=== PATIENT | female | born 1965 | race Caucasian/White ===

== ENCOUNTER → 2016-10-20 | Outpatient (CLI) | payer MEDICAID | LOC: FIMAGING 13:02 | PROVIDERS: ATTEND Physician Assistant | DX: S63.391A Traumatic rupture of other ligament of right wrist, initial encounter (principal); M25.431 Effusion, right wrist ==

== ENCOUNTER 2017-03-25 19:48 | Emergency (ER) | payer MEDICAID ==
[2017-03-25 20:02] VITALS: TEMP 98.4
[2017-03-25] MEDS ORDERED: NS 1,000 ML IV ONE (20:06)
[2017-03-25] MEDS ORDERED: ONDANSETRON 4 MG/2 ML VIAL IVP ONE (20:06)
[2017-03-25] MEDS ORDERED: fentaNYL 100 MCG/2 ML INJ IVP ONE ×3 (20:06→20:55)
[2017-03-25] MEDS ORDERED: LORazepam 2 MG/ML INJ IVP ONE (20:13)
--- NOTE | 2017-03-25 20:13 | EDPHY ---
H & P Time Seen by Provider: 03/25/17 20:03 HPI/ROS: CHIEF COMPLAINT: right wrist pain status post foosh HISTORY OF PRESENT ILLNESS: 51-year-old [id number] female arrives via private vehicle complaining of acute right wrist pain after she was walking her cat, tripped and fell landing on her outstretched right hand complaining of acute right wrist pain. She has prior history of right wrist fracture with surgery x2 by Dr. Julius Burk most recently July 2016 PRIMARY CARE PROVIDER: REVIEW OF SYSTEMS: A ten point review of systems was performed and is negative with the exception of the items mentioned in the HPI PHYSICAL EXAM (Prior to examination, patient consented to physical exam, hands were washed and my usual and customary physical exam procedures followed) 1) GENERAL: Well-developed, well-nourished, alert and oriented. Appears anxious , crying, appears uncomfortable . 2) HEAD: Normocephalic 3) HEENT: Pupils equal, round, reactive to light bilaterally. 4) LUNGS: Breathing comfortably. 5) MUSCULOSKELETAL: Dorsal deformity of the distal radius noted, Soft compartments. Normal coloration. 6) SKIN: intact 7) VASCULAR: pulses and cap refill present are brisk 8) NEUROLOGIC: Radial, ulnar, median nerve function intact with no deficits appreciated on exam DIFFERENTIAL DIAGNOSIS: in no particular order including but not limited to fracture, sprain, compartment syndrome Smoking Status: Former smoker Constitutional: Initial Vital Signs Temperature (C) 36.9 C 03/25/17 19:57 Heart Rate 82 03/25/17 19:57 Respiratory Rate 18 03/25/17 19:57 Blood Pressure 141/93 H 03/25/17 19:57 O2 Sat (%) 93 03/25/17 19:57 O2 Delivery Mode Room Air Allergies/Adverse Reactions: tiagabine HCl [From Gabitril] Allergy (Verified 11/06/15 15:38) Home Medications: Medication Instructions Recorded [place] Thyroid 09/09/14 Hydrocodone/APAP 5/325 [[place] 1 tab PO Q6 PRN #15 tab 03/25/17 5/325 (RX)] Metoprolol Tartrate 07/21/17 Naratriptan HCl [Amerge] 03/25/17 Prednisone 03/25/17 MDM/Departure - MDM Imaging Results: Imaging Impressions Forearm X-Ray 03/25/17 20:05 Impression: 1. Comminuted displaced distal right radial fracture. Wrist X-Ray 03/25/17 20:05 Impression: Comminuted, displaced, angulated distal right radial fracture with intra-articular extension. Wrist X-Ray 03/25/17 20:55 Impression: Reduction and casting of comminuted distal right radial fracture. Images reviewed myself Imaging: I viewed and interpreted images myself Procedures: 8:50 p.m.: Procedure: Fracture reduction Indication: Fracture of the distal radius Indications, risks and benefits discussed with patient and consent obtained. A hematoma block of 0.5% bupivicaine placed by myself. Traction and countertraction applied achieving a visible and palpable reduction. The area was splinted with sugar-tong Orthoglass splint and sling. After application of the splint I returned and re-examined the patient. The splint was adequately immobilizing the joint and distal to the splint the patient's circulation and sensation were intact. Patient shows no signs of compartment syndrome. Was given orthopedic precautions. Medications Given: Discontinued Medications Hydrocodone Bitart/Acetaminophen ([place] 5/325mg Prepack#6) 1 btl TAKEHOME EDNOW ONE Stop: 03/25/17 21:36 Last Admin: 03/25/17 21:45 Dose: 1 btl Fentanyl (Sublimaze) 50 mcg IVP EDNOW ONE Stop: 03/25/17 20:07 Last Admin: 03/25/17 20:18 Dose: 50 mcg Fentanyl (Sublimaze) 100 mcg IVP EDNOW ONE Stop: 03/25/17 20:14 Last Admin: 03/25/17 20:24 Dose: Not Given Fentanyl (Sublimaze) 100 mcg IVP EDNOW ONE Stop: 03/25/17 20:56 Last Admin: 03/25/17 20:56 Dose: 100 mcg Sodium Chloride (Ns) 1,000 mls @ 0 mls/hr IV ONCE ONE PRN Reason: Wide Open Stop: 03/25/17 20:07 Last Admin: 03/25/17 20:17 Dose: 1,000 mls Ketorolac Tromethamine (Toradol) 30 mg IVP EDNOW ONE Stop: 03/25/17 21:11 Last Admin: 03/25/17 21:19 Dose: 30 mg Lorazepam (Ativan Injection) 1 mg IVP EDNOW ONE Stop: 03/25/17 20:14 Last Admin: 03/25/17 20:30 Dose: 1 mg Ondansetron HCl (Zofran) 4 mg IVP EDNOW ONE Stop: 03/25/17 20:07 Last Admin: 03/25/17 20:18 Dose: 4 mg Oxycodone/Acetaminophen (Percocet 5/325) 1 tab PO EDNOW ONE Stop: 03/25/17 21:40 Last Admin: 03/25/17 21:45 Dose: 1 tab ED Course/Re-evaluation: Patient was re-evaluated with serial examinations. Reviewed her x-rays. She has no evidence of compartment syndrome at initial or on serial examinations. Her fracture has been reduced however she will necessitate continued follow up with her orthopedic surgeon Dr. Julius Burk. Usual and customary orthopedic precautions instructions provided.Care and management in consultation with secondary supervising physician Dr Juarez . - Depart Disposition: Home, Routine, Self-Care Clinical Impression: Closed right radial fracture Qualifiers: Encounter type: initial encounter Radius location: distal Fracture morphology: Collenavi' Qualified Code(s): S52.531A - Colles' fracture of right radius, initial encounter for closed fracture Condition: Good Instructions: Hydrocodone/Acetaminophen (By mouth), Wrist Fracture in Adults ( ED) Additional Instructions: Return to the ER immediately if you experience discoloration, have worsening pain, numbness, tingling, or any other symptoms that concern you. If you received x-rays in the emergency department today, be advised, that ligamentous , tendon, muscular, and other non-bony injury cannot be fully ruled out. Try to keep your affected extremity elevated above the level of your chest, and keep cold packs on the affected area, for the next 48 hours. Prescriptions: Hydrocodone/APAP 5/325 [[place] 5/325 (RX)] 1 tab PO Q6 PRN #15 tab PRN Reason: Pain, Severe Referrals: Julius Burk MD [Medical Doctor] - 2-3 days, call for appt.
[2017-03-25] MEDS ORDERED: fentaNYL 100 MCG/2 ML INJ ONE (20:50)
[2017-03-25] MEDS ORDERED: KETOROLAC 30 MG/1 ML SDV IVP ONE (21:10)
[2017-03-25 21:23] VITALS: RESP 16
[2017-03-25] MEDS ORDERED: HYDROCOD/APAP 5/325 PREPACK#6 BTL TAKEHOME ONE (21:35)
[2017-03-25] MEDS ORDERED: OXYCODONE/APAP 5/325 TAB PO ONE (21:39)
[2017-03-25 21:58] VITALS: BP 124/84; PULSE 82; O2SAT 94
== END 2017-03-25 21:58 | disposition home or self-care (01) ==
PROC: 0PSHXZZ Reposition Right Radius, External Approach (ICD-10-PCS; principal; 2017-03-25)
DX: S52.531A Colles' fracture of right radius, initial encounter for closed fracture (principal); Z87.891 Personal history of nicotine dependence; W01.0XXA Fall on same level from slipping, tripping and stumbling without subsequent striking against object, initial encounter; Y99.8 Other external cause status; Y93.01 Activity, walking, marching and hiking
CPT/HCPCS: 96374; A4565; J1885; J2060; J2405; J3010

== ENCOUNTER 2017-04-06 07:33 | Observation (INO) | payer MEDICAID ==
[2017-04-06] MEDS ORDERED: LR 1,000 ML IV ONE (08:06)
[2017-04-06] MEDS ORDERED: LIDOCAINE 1% 2 ML INJ ID PRN (08:06)
[2017-04-06] MEDS ORDERED: BUPIVACAINE 0.5% 30 ML SDV ONE (08:15)
[2017-04-06] MEDS ORDERED: OXYCODONE/APAP 5/325 TAB PO ONE (09:15)
--- NOTE | 2017-04-06 09:38 | PDHPUP ---
History & Physical Update H&P update statement: This history and physical update is based on an assessment of the patient which was completed after admission or registration (within 24 hours), but prior to the surgery/procedure. H&P update: no change in patient's condition since H&P completed
[2017-04-06] MEDS ORDERED: ceFAZolin 2 GM/DEXTROSE 100 ML IV ONE (09:39)
[2017-04-06] MEDS ORDERED: MIDAZOLAM 2 MG/2 ML VIAL ONE ×2 (09:46→12:38)
[2017-04-06] MEDS ORDERED: MIDAZOLAM 2 MG/2 ML VIAL IVP ONE ×2 (09:47→12:45)
--- NOTE | 2017-04-06 09:48 | PDANEPAE ---
ANE Past Medical History - Cardiovascular History Hx Hypertension: No Hx Arrhythmias: No Hx Chest Pain: No Hx Coronary Artery / Peripheral Vascular Disease: No Hx CHF / Valvular Disease: No Hx Palpitations: No Cardiovascular History Comment: INCREASED HEART RAT RELATED TO CURRENT RX ON RX TO COUNTER - Pulmonary History Hx COPD: No Hx Asthma/Reactive Airway Disease: No Hx Recent Upper Respiratory Infection: No Hx Oxygen in Use at Home: No Hx Sleep Apnea: No Sleep Apnea Screening Result - Last Documented: Negative Pulmonary History Comment: SEP 2015 EAR INFECTION - Neurologic History Hx Cerebrovascular Accident: No Hx Seizures: Yes Hx Dementia: No Neurologic History Comment: SEIZURE RESULT OF GABITRIL MEDICATION. MIGRAINES - Endocrine History Hx Diabetes: No Hypothyroid: Yes Hyperthyroid: No Obesity: no Endocrine History Comment: TOTAL THYROIDECTOMY 2013. GRAVES DISEASE - Renal History Hx Renal Disorders: Yes Renal History Comment: INTERSTITIAL CYSTITIS NOT RECENTLY - Liver History Hx Hepatic Disorders: No - Neurological & Psychiatric Hx Hx Neurological and Psychiatric Disorders: No - Cancer History Hx Cancer: No - Congenital Disorder History Hx Congenital Disorders: No - GI History Hx Gastrointestinal Disorders: Yes Gastrointestinal History Comment: ULCER. IBS - Other Health History Other Health History: 08/03/15 SLIPPED AND FELL ON ICE AND CASTED. POLYMYALGIA RHEUMATICA DX 06/2015 - Chronic Pain History Chronic Pain: Yes (RT WRIST) - Surgical History Prior Surgeries: R WRIST 05/2016. SUBTOTAL THYROIDECTOMY 05/2014. LAPAROSCOPIC SURGERIES X 7. TOTAL HYSTERECTOMY. APPENDECTOMY. R PATELLAR REALIGN. CYST REMOVED L BREAST ANE Review of Systems - Exercise capacity METS (RN): 4 METS ANE Patient History - Allergies Allergies/Adverse Reactions: tiagabine HCl [From Gabitril] Allergy (Verified 04/06/17 08:46) Other-Enter Comments - Home Medications Home Medications: [place] Thyroid 09/09/14 [Last Taken 04/05/17 10:00] Metoprolol Tartrate 03/25/17 [Last Taken 03/23/17] Naratriptan HCl [Amerge] 03/25/17 [Last Taken 04/05/17 15:00] Prednisone 03/25/17 [Last Taken 04/05/17 10:00] Fosamax 5mg 04/05/17 [Last Taken 03/29/17] Percocet 5-325 mg Tablet 04/05/17 [Last Taken 04/05/17 00:00] - NPO status NPO Since - Liquids (Date): 04/05/17 NPO Since - Liquids (Time): 00:00 NPO Since - Solids (Date): 04/05/17 NPO Since - Solids (Time): 23:00 - Smoking Hx Smoking Status: Former smoker - Family Anes Hx Family Hx Anesthesia Complications: NEG ANE Labs/Vital Signs - Vital Signs Blood Pressure: 133/87 Heart Rate: 77 Respiratory Rate: 14 O2 Sat (%): 96 Height: 149.86 cm Weight: 55.338 kg ANE Physical Exam - Airway Neck exam: FROM Mallampati Score: Class 1 Mouth exam: normal dental/mouth exam - Pulmonary Pulmonary: no respiratory distress - Cardiovascular Cardiovascular: regular rate and rhythym - ASA Status ASA Status: II ANE Anesthesia Plan Anesthesia Plan: GA w LMA
[2017-04-06] MEDS ORDERED: PROPOFOL/EMULSION 500 MG/50 ML BOTTLE IV ONE (10:02)
[2017-04-06] MEDS ORDERED: ONDANSETRON 4 MG/2 ML VIAL ONE (10:03)
[2017-04-06] MEDS ORDERED: DEXAMETHASONE 4 MG/ML VIAL ONE (10:03)
[2017-04-06] MEDS ORDERED: fentaNYL 100 MCG/2 ML INJ ONE ×4 (10:03→11:46)
[2017-04-06] MEDS ORDERED: KETOROLAC 30 MG/1 ML SDV ONE (10:03)
[2017-04-06] MEDS ORDERED: LIDOCAINE 2% 5 ML SDV ONE (10:03)
[2017-04-06] MEDS ORDERED: HYDROmorphONE/DILAUDID 2 MG/ML INJ ONE (10:55)
[2017-04-06] MEDS ORDERED: NALOXONE HCL 0.4 MG/ML INJ IVP PRN (11:16)
[2017-04-06] MEDS ORDERED: LR 500 ML IV PRN (11:16)
[2017-04-06] MEDS ORDERED: PROMETHAZINE HCL 25 MG/ML INJ IVP PRN (11:16)
[2017-04-06] MEDS ORDERED: OXYCODONE/APAP 5/325 TAB PO PRN (11:16)
--- NOTE | 2017-04-06 11:26 | POSTOPPROG ---
Post Op Note Date of Operation: 04/06/17 Surgeon: Julius Burk Anesthesiologist: Dr Moody Anesthesia: LMA Pre-op Diagnosis: Right distal radius fracture Post-op Diagnosis: same Indication: displaced fracture Procedure: Open reduction and plate fixation of fracture Findings: Fracture with displacement Inf/Abcess present in the surg proc area at time of surgery?: No Depth: Deep Incisional (Fascial) EBL: Minimal Total fluids administered: 700cc Complications: None
[2017-04-06] MEDS ORDERED: HYDROmorphONE/DILAUDID 1 MG/ML SYR ONE ×4 (11:28→15:42)
[2017-04-06] MEDS: fentaNYL 100 MCG/2 ML INJ IVP PRN ×4 (11:29→11:52)
--- NOTE | 2017-04-06 11:29 | POSTANESTH ---
Post Anesthetic Evaluation Cardiovascular Status: Normal, Stable Respiratory Status: Normal, Stable Level of Consciousness/Mental Status: Can Participate in Eval Pain Control: Adequate, Prn Tx Ordered Nausea/Vomiting Control: Adequate, Prn Tx Ordered Complications Possibly Related to Anesthesia: None Noted
[2017-04-06] MEDS: HYDROmorphONE/DILAUDID 1 MG/ML SYR IVP PRN ×7 (11:31→16:08)
[2017-04-06] MEDS ORDERED: ROPIVACAINE HCL 150 MG/30 ML INJ ONE (12:22)
--- NOTE | 2017-04-06 12:42 | GOP ---
[f rep st] OPERATIVE REPORT DATE OF OPERATION: 04/06/2017 SURGEON: Julius Burk MD PREOPERATIVE DIAGNOSIS: Right comminuted displaced distal radial fracture. POSTOPERATIVE DIAGNOSIS: Right comminuted displaced distal radial fracture. PROCEDURE PERFORMED: Open reduction and plate and screw fixation of right distal radial fracture. FINDINGS: INDICATIONS: This patient had a distal radial fracture which had displaced very significantly dorsa lly and it was felt that realignment of the fracture was necessary at this point. DESCRIPTION OF PROCEDURE: Under general anesthesia, the patient's right arm was prepped and draped in the usual fashion and with the arm tourniquet at 250 mmHg, an L-shaped incision was made transver sely at the distal flexion crease of the wrist and then obliquely proximal onto the forearm. Skin a nd subcutaneous tissue were reflected and palmaris longus tendon was almost non-existent. It was so rudimentary. The FCR tendon was mobilized and reflected. The interval between the FCR and the fle xor pollicis longus and the finger flexors and median nerve was developed and a self-retaining retra ctor was placed. The pronator quadratus muscle was elevated from the distal radius. The fracture s ite was identified and cleansed of organized hematoma and then the fracture was reduced into anatomi c alignment. Using the Synthes distal radius, plate, and screw set, a 6-hole distal and 3-screw pro ximal plate was placed, locking the fracture in correct alignment. The reduction was anatomic and t he screw placement was determined to be good. There were no intra-articular screws and screw length was correct. The wound was irrigated profusely with body temperature saline and then the pronator quadratus and fascia were reapproximated with [id number] sutures of 4-0 PDS, and the skin close d with horizontal mattress sutures of 5-0 Prolene. A bulky soft pressure dressing was applied follo wed by powder-base fiberglass splint, held in place with an [place] bandage. She tolerated the procedur e well. Tourniquet deflation resulted in immediate pinking of the digits. [facility] where detailed postoperative instructions were given prior to discharge. A prescriptio n for Percocet and Keflex was provided. She had been given 2 g of Ancef prior to commencement of thomas rgery. Followup arrangements in the office for about a week postop for dressing, suture removal, an d cast application for 3 additional weeks. /[id number]/MODL
--- NOTE | 2017-04-06 13:08 | SOAPPROG ---
SOAP Progress Note Assessment/Plan: Assessment: Pt in PACU post wrist ORIF. C/O significant pain and requesting a block for pain control. This was discussed with surgeon who is in agreement and requesting a block. Plan: Consent signed and after time-out R supraclavicular block done with ultrasound. Ropivicaine 0.5 percent total 20 mls in divided doses with frequent negative aspirations. Procedure well tolerated and no complications noted. Pt reports pain relief, but continues to have some discomfort on upper wrist area. Arm weak and numb. Possible did not get great distal block. Discussed repeating vs continuing with IV and adding oral meds. Pt agrees relief is significant enough that wants to go with oral meds for now. 04/06/17 13:02 04/06/17 13:08 Objective: Vital Signs Temp Pulse Resp BP Pulse Ox 36.3 C 77 22 H 125/77 H 95 04/06/17 12:14 04/06/17 09:48 04/06/17 12:45 04/06/17 12:31 04/06/17 12:45 ICD10 Worksheet Patient Problems: Problems Problem Status Onset Abdominal pain, chronic, right upper quadrant Acute Nausea and vomiting in adult Acute
[2017-04-06] MEDS ORDERED: OXYCODONE/APAP 5/325 TAB ONE (13:18)
[2017-04-06] MEDS ORDERED: DIAZEPAM 10 MG/2 ML SYR IVP ONE (15:58)
[2017-04-06] MEDS ORDERED: METOPROLOL TARTRATE 5 MG/5 ML INJ IVP PRN (16:10)
--- NOTE | 2017-04-06 16:20 | SOAPPROG ---
SOAP Progress Note Assessment/Plan: Assessment: Pt in PACU post wrist ORIF. Did block earlier but pt continues to C/O significant pain. Arm is heavy and pt unable to lift. Pain dorsal wrist area. Plan: Repeat with supraclavicular block for more distal coverage. After time-out R supraclavicular block done with ultrasound. Ropivicaine 0.5 percent total 10 mls in divided doses with frequent negative aspirations. Procedure well tolerated and no complications noted. Repeat block done about 14:00. Following block Pt reports some pain relief, but continues to have some discomfort on upper wrist area. Thumb and index finger numb states has "numb pain" fingers. Recommend continue with oral meds and if ineffective consider admission. 04/06/17 16:14 04/06/17 16:20 Objective: Vital Signs Temp Pulse Resp BP Pulse Ox 37.2 C 77 14 108/65 95 04/06/17 14:41 04/06/17 09:48 04/06/17 14:15 04/06/17 14:15 04/06/17 14:15 ICD10 Worksheet Patient Problems: Problems Problem Status Onset Abdominal pain, chronic, right upper quadrant Acute Nausea and vomiting in adult Acute
[2017-04-06] MEDS ORDERED: ONDANSETRON DISINTEGRATING 4 MG TAB PO PRN (16:27)
[2017-04-06] MEDS ORDERED: HYDROmorphONE/DILAUDID 1 MG/ML SYR IVP PRN (16:27)
[2017-04-06] MEDS ORDERED: LORazepam 2 MG/ML INJ IVP PRN (16:27)
[2017-04-06] MEDS ORDERED: LORazepam 0.5 MG TAB PO PRN (16:27)
[2017-04-06] MEDS ORDERED: ONDANSETRON 4 MG/2 ML VIAL IVP PRN (16:27)
[2017-04-06] MEDS ORDERED: DIAZEPAM 10 MG/2 ML SYR ONE (16:30)
[2017-04-06] MEDS ORDERED: NS 1,000 ML IV SCH (16:30)
[2017-04-06] MEDS ORDERED: BISACODYL 10 MG SUPP PR PRN (16:57)
[2017-04-06] MEDS ORDERED: LACTULOSE 20 GM/30 ML UDCUP PO PRN (16:57)
[2017-04-06] MEDS ORDERED: POLYETHYLENE GLYCOL 3350 17 GM PKT PO PRN (16:57)
[2017-04-06] MEDS ORDERED: MAGNESIUM HYDROXIDE 30 ML UDCUP PO PRN (16:57)
[2017-04-06] MEDS ORDERED: NAPROXEN SODIUM 220 MG TAB PO PRN (16:59)
--- NOTE | 2017-04-06 17:03 | PDGENHP ---
History and Physical - Chief Complaint Acute hand pain - History of Present Illness primary care provider: [facility] Primary orthopedic surgeon: Dr. Burk History of present illness: 51-year-old female presenting with acute right hand pain characterized as sharp with associated paresthesias located in the distal fingers of the right hand. The patient underwent ORIF for a distal radial fracture on the day of this presentation and the onset of the symptoms are immediately postoperative. The patient had been experiencing pain located in her right upper extremity and right wrist after sustaining a mechanical fall approximately 2 weeks ago, resulting in a pena's fracture, managed with cast and alleviated with 10 mg of oral Percocet and Aleve as an outpatient. the pain was exacerbated by attempting to hold and care for dying PET recently. she underwent surgery today with Dr. Burk, did not experience any complications, and then began experiencing severe pain in recovery. The patient was seen by Dr. Martin and to infraclavicular nerve blocks were performed. The nerve block did not seem to control the pain but did produce significant paresthesias in the fingers. The patient does report that she has significant paresthesia all along her Proximal right upper extremity and right chest. History Information - Allergies/Home Medication List Allergies/Adverse Reactions: tiagabine HCl [From Gabitril] Allergy (Verified 04/06/17 08:46) Other-Enter Comments Home Medications: [place] Thyroid 09/09/14 [Last Taken 04/05/17 10:00] Metoprolol Tartrate 03/25/17 [Last Taken 03/23/17] Naratriptan HCl [Amerge] 03/25/17 [Last Taken 04/05/17 15:00] Prednisone 03/25/17 [Last Taken 04/05/17 10:00] Fosamax 5mg 04/05/17 [Last Taken 03/29/17] Percocet 5-325 mg Tablet 04/05/17 [Last Taken 04/05/17 00:00] I have personally reviewed and updated: family history, medical history, social history, surgical history - Past Medical History Additional medical history: irritable bowel syndrome. Interstitial cystitis. Chronic migraine. Graves disease. Polymyalgia rheumatica on chronic steroids. Recent colliers fracture - Surgical History Additional surgical history: hysterectomy. Appendectomy. Right patella surgery. left breast lumpectomy. Endometriosis surgery. Thyroidectomy - Family History Additional family history: mother with rectal cancer, father with diabetes mellitus, sister with [place]'s disease - Social History Smoking Status: Former smoker Alcohol Use: Occasionally Drug Use: None Additional social history: normally independent in her ADLs Review of Systems ROS: 10pt was reviewed & negative except for what was stated in HPI & below Muscolosketal: Reports: other ( Pain in the right hand) Neurological: Reports: paresthesia ( right hand) Physical Exam Temp Pulse Resp BP Pulse Ox 37.1 C 77 16 132/83 H 94 04/06/17 16:50 04/06/17 09:48 04/06/17 16:45 04/06/17 16:45 04/06/17 16:45 O2 (L/minute) 2 Constitutional: no apparent distress, appears nourished, not in pain Eyes: PERRL, anicteric sclera, EOMI Ears, Nose, Mouth, Throat: moist mucous membranes, hearing normal, ears appear normal, no oral mucosal ulcers Cardiovascular: regular rate and rhythym, no murmur, rub, or gallop, other ( good capillary refill in the right upper extremity fingers), No edema Respiratory: no respiratory distress, no rales or rhonchi, clear to auscultation Gastrointestinal: normoactive bowel sounds, soft, non-tender abdomen, no palpable masses Skin: other ( no duskiness or erythema over the distal fingers right hand) Musculoskeletal: other ( movement in right fingers, right upper extremity in sling) Neurologic: AAOx3, other ( paresthesias right fingers, right proximal upper extremity) Psychiatric: interacting appropriately, not anxious, not encephalopathic, thought process linear Assessment & Plan Assessment: 51-year-old female presenting with acute pain and paresthesias following ORIF for right Pena's fracture Plan: 1. Right upper extremity pain. Acute, new problem this provider, no further workup indicated. Most likely a combination of postoperative pain as well as hyper esthesia in the setting of nerve block and underlying pain syndrome with constellation of interstitial cystitis area bowel syndrome, migraine disorder, PMR. - although the patient is currently reporting extreme pain, she seems to be fairly comfortable after receiving a recent dose of IV Dilaudid, fentanyl - discussed with Dr. Burk, he has reported to me that the dressing has been split and he will reassess the patient from a surgical perspective tomorrow morning prior to discharge - attempt to manage pain with initial dose of IV Toradol now, p.r.n. Aleve, IV and oral Dilaudid, Ativan as needed given that there is most likely a hypersensitivity component - bowel regimen - Incentive spirometer 2. Polymyalgia rheumatica with chronic steroid dependency. Patient should be continued on her home dosage of methylprednisolone once reconciled to avoid hypotension Diet. Regular Prophylaxis. High risk patient given mobility, Lovenox 40 Code. Full Disposition. Anticipated discharge is 04/07/2017, requiring frequent IV pain medication dosing overnight, continue to reassess.
[2017-04-06] MEDS: KETOROLAC 15 MG/1 ML SDV IVP PRN (18:12)
[2017-04-06] MEDS: ACETAMINOPHEN 325 MG TAB PO PRN (18:13)
[2017-04-06] MEDS: HYDROmorphONE/DILAUDID 2 MG TAB PO PRN ×2 (18:13→22:01)
--- NOTE | 2017-04-06 18:48 | SOAPPROG ---
SOAP Progress Note Assessment/Plan: Assessment: Plan: 04/06/17 18:42 Hand Surgery note I evaluated Hilaria this evening and pain is under better control. Unfortunately her plexus block for post op pain control has given her complete block of shoulder and elbow but she has intact finger extension and flexion and finger and wrist area sensation. The wound was inspected and looks excellent. No hematoma and no skin compromise. Swelling is as expected post op. I think observation overnight for pain management is needed and plan discharge in the am if Dr. Lee agrees. Objective: Vital Signs Temp Pulse Resp BP Pulse Ox 37.2 C 87 14 111/75 90 L 04/06/17 17:18 04/06/17 17:18 04/06/17 17:18 04/06/17 17:18 04/06/17 17:18 04/05/17 04/06/17 04/07/17 05:59 05:59 05:59 Intake Total 1900 Output Total 5 Balance 1895 ICD10 Worksheet Patient Problems: Problems Problem Status Onset Abdominal pain, chronic, right upper quadrant Acute Nausea and vomiting in adult Acute
[2017-04-06] MEDS ORDERED: Naratriptan Hcl [Amerge] 2.5 MG PO PRN (18:52)
[2017-04-06] MEDS ORDERED: methylPREDNISolone 4 MG TAB PO SCH (21:00)
[2017-04-06] MEDS: SENNOSIDES/DOCUSATE SODIUM TAB PO SCH (21:11)
[2017-04-07] MEDS: KETOROLAC 15 MG/1 ML SDV IVP PRN ×2 (00:20→09:16)
[2017-04-07] MEDS: ACETAMINOPHEN 325 MG TAB PO PRN (04:50)
[2017-04-07] MEDS: HYDROmorphONE/DILAUDID 2 MG TAB PO PRN ×3 (04:50→12:20)
[2017-04-07 07:41] VITALS: BP 103/74; PULSE 67; RESP 16; TEMP 97.5; O2SAT 95
[2017-04-07] MEDS ORDERED: ENOXAPARIN 40 MG/0.4 ML SYR SC SCH (09:00)
[2017-04-07] MEDS ORDERED: Herbals/Supplements -Info Only PO SCH (09:00)
[2017-04-07] MEDS: SENNOSIDES/DOCUSATE SODIUM TAB PO SCH (09:19)
[2017-04-07] MEDS ORDERED: THYROID 60 MG TAB PO SCH (10:00)
[2017-04-07] MEDS ORDERED: NON-FORMULARY NEW DRUG (Thyroid,Pork [Armour Thyroid] 15 MG) PO SCH (10:00)
--- NOTE | 2017-04-07 10:30 | HOSPPROG ---
Hospitalist Progress Note Assessment/Plan: 51-year-old female presenting with acute pain and paresthesias following ORIF for right Young's fracture *right upper extremity pain post op pain was given nerve block but cont to have pain trial of Toradol, Dilaudid *distal radius fx s/p ORIF per Dr Burk * Polymyalgia rheumatica with chronic steroid dependency. *Plan: dc home with f/u care w Dr Burk Subjective: Hilaria said her pain is much better today. Objective: Vital Signs Temp Pulse Resp BP Pulse Ox 36.4 C 67 16 103/74 95 04/07/17 07:40 04/07/17 07:40 04/07/17 07:40 04/07/17 07:40 04/07/17 07:40 04/06/17 04/07/17 04/08/17 05:59 05:59 05:59 Intake Total 3000 Output Total 5 Balance 2995 - Physical Exam Constitutional: not in pain Eyes: PERRL Ears, Nose, Mouth, Throat: hearing normal Respiratory: no respiratory distress Skin: warm, other (right forearm in splint/ good cap refill/ fingers cool (but has had ice on hand, wrist area), ecchymosis and some swelling to fingers on right hand) Musculoskeletal: full muscle strength (x for right arm) Neurologic: AAOx3 Psychiatric: interacting appropriately ICD10 Worksheet Patient Problems: Problems Problem Status Onset Abdominal pain, chronic, right upper quadrant Acute Nausea and vomiting in adult Acute
--- NOTE | 2017-04-07 11:40 | GDS ---
[f rep st] DISCHARGE SUMMARY DISCHARGE DIAGNOSES: 1. Right upper extremity pain after having surgery. 2. Right radial fracture status post open reduction, internal fixation. 3. Polymyalgia rheumatica. BRIEF HISTORY: The patient is a 51-year-old female who was walking on her porch in the rain with flip-flops and slipped. She sustained a distal radial fracture. She underwent an ORIF of the distal radial fracture and started experiencing significant pain afterwards. She had an infraclavicular nerve block in the OR that was performed but did not seem to control her pain. She was admitted overnight to get her pain under control. Today, she is feeling markedly better. She will be discharged home. HOSPITAL COURSE PER PROBLEM: 1. Right upper extremity pain, resolved. 2. Distal radius fracture. She is status post ORIF. Further followup with Dr. Burk. 3. Polymyalgia rheumatica, steroids have been resumed. DISCHARGE CONDITION: Stable. VITAL SIGNS: Blood pressure is 103/74, O2 sat on room air 95%, respiratory rate is 16, pulse is 67, temperature is 36.4 Celsius. MEDICATIONS AT DISCHARGE: Please see the EMR. DISCHARGE INSTRUCTIONS: 1. Monitor her hand for any coolness or numbness. 2. If she develops fever, chills, chest pain, shortness of breath, return to the ER. /[id number]/MODL MTDD
== END 2017-04-07 12:31 | disposition home or self-care (01) ==
LOC: FSGY 07:33 → F3N 15:17 → UNDOADMOB 15:17 → F3N 17:10
PROVIDERS: ADMIT Specialist; ATTEND Internal Medicine
PROC: 3E0T3CZ (ICD-10-PCS; 2017-04-06)
PROC: 0PSH04Z Reposition Right Radius with Internal Fixation Device, Open Approach (ICD-10-PCS; principal; 2017-04-06 09:00)
DX: S52.531A Colles' fracture of right radius, initial encounter for closed fracture (principal); G89.18 Other acute postprocedural pain; M35.3 Polymyalgia rheumatica; E05.00 Thyrotoxicosis with diffuse goiter without thyrotoxic crisis or storm; W01.0XXA Fall on same level from slipping, tripping and stumbling without subsequent striking against object, initial encounter; Y99.8 Other external cause status; Y93.01 Activity, walking, marching and hiking; Y92.018 Other place in single-family (private) house as the place of occurrence of the external cause; Z79.52 Long term (current) use of systemic steroids; Z87.891 Personal history of nicotine dependence
CPT/HCPCS: 25607; 64415; 97165; C1769; G0378; C1713; J0690; J1100; J1170; J1650; J1885; J2250; J2405; J2704; J2795; J3010

== ENCOUNTER 2018-04-26 22:50 | Emergency (ER) | payer MEDICAID ==
[2018-04-26] MEDS ORDERED: AMOXICILLIN/CLAVULANATE POT 875/125 MG TAB PO ONE (23:16)
--- NOTE | 2018-04-26 23:16 | EDPHY ---
H & P Stated Complaint: cat bites Time Seen by Provider: 04/26/18 23:13 HPI/ROS: HPI: This is a 52-year-old female who presents with Chief Complaint: Cat bite Location: Left wrist and top of hand Quality: Cat bite Duration: 30 min prior to arrival Signs and Symptoms: + bleeding, no radiation, no numbness, no weakness, no tingling, no incontinence, no decreased range of motion, no swelling, + pain, no fever Timing: Acute Severity: Moderate Context: Patient is right-hand dominant, presents with cat bite to her left palmar aspect of her wrist and top of left hand. She reports that she had just finished taking a coconut back when she heard her male cat mowing and crying outside. She went outside and found that her male CT who is up-to-date on vaccinations including rabies, was in a fight with another cat. She reports that she put her hand on the back of her male cat and she tried to break up the fight. Her male cat turned around and bit her left wrist as well as the top of her left hand. She reports that it started to bleed on her left wrist palmar side. Immediately took her bathrobe and wrapped around her wrist and used as a tourniquet. This stopped the bleeding. Reports tetanus is current. Patient denies any radiation, weakness, decreased range of motion. Modifying Factors: Direct pressure Comment: ROS: see HPI Constitutional: No fever, no chills, no weight loss Eyes: No blurred vision Respiratory: No shortness of breath, no cough Cardiovascular: No chest pain Gastrointestinal: No nausea, no vomiting no diarrhea Genitourinary: No dysuria Extremities: No myalgias Neurologic: No weakness, no numbness Skin: No rashes Hematologic: No bruising, no bleeding MEDICAL/SURGICAL/SOCIAL HISTORY: Medical history: thyroidectomy/graves disease. Fibromyalgia, Surgical history: hysterectomy , r wrist surgery with complication, r knee surgery, appendectomy Social history: Employed, smoker. CONSTITUTIONAL: Elderly white female who appears older than stated age, awake and alert, no obvious distress HEENT: Atraumatic and normocephalic. EXTREMITIES: 2/2 pulses, strength 5/5, left wrist-palmar aspect shows 3 in, deep, simple laceration, topical left hand shows 1 in, superficial, simple laceration. DIP/PIP/MCP flexion/extension intact with good light touch sensation. no deformities, no clubbing, no cyanosis or edema. NEUROLOGICAL: no focal neuro deficits. GCS 15. Light touch sensation intact. SKIN: Warm and dry, no erythema. no rash. Good capillary refill. Source: Patient Exam Limitations: No limitations - Personal History LMP (Females 10-55): Hysterectomy Current Tetanus Diphtheria and Acellular Pertussis (TDAP): Yes Tetanus Vaccine Date: 2012 - Medical/Surgical History Hx Asthma: No Hx Chronic Respiratory Disease: No Hx Diabetes: No Hx Cardiac Disease: No Hx Renal Disease: No Hx Cirrhosis: No Hx Alcoholism: No Hx HIV/AIDS: No Hx Splenectomy or Spleen Trauma: No Other PMH: thyroidectomy/graves disease. Fibermyalgia. hysterectomy. r wrist surgery with complication. r knee surgery. appy - Social History Smoking Status: Light smoker Constitutional: Initial Vital Signs Temperature (C) 36.6 C 04/26/18 22:59 Heart Rate 100 04/26/18 22:59 Respiratory Rate 16 04/26/18 22:59 Blood Pressure 152/112 H 04/26/18 22:59 O2 Sat (%) 97 04/26/18 22:59 O2 Delivery Mode Room Air Allergies/Adverse Reactions: tiagabine HCl [From Gabitril] Allergy (Verified 04/26/18 22:57) Other-Enter Comments Home Medications: Medication Instructions Recorded Metoprolol Tartrate [Lopressor 25 25 - 50 mg PO DAILY PRN #0 03/25/17 mg (*)] Naratriptan HCl [Amerge] 2.5 mg PO DAILY PRN 03/25/17 methylPREDNISolone [Medrol 4mg (*)] 2 - 4 mg PO HS #0 03/25/17 Herbals/Supplements -Info Only 1 ea PO DAILY 04/06/17 Thyroid,Pork [[place] Thyroid] 15 mg PO DAILY10 04/06/17 Amoxicillin/Clavulanate Pot 875 mg PO BID #14 tab 04/26/18 [Augmentin 875 MG TAB (*)] Hydroxychloroquine Sulfate 04/26/18 Medical Decision Making Procedures: Procedure: Laceration repair. Verbal consent was obtained from the patient. The 4 cm laceration on the left wrist was anesthetized in the usual fashion using 3 mL of 1% lidocaine with epinephrine. The wound was irrigated, draped and explored to its base with a gloved finger. There were no deep structures involved. No tendon injury was identified. The wound was repaired with #8, 5-0 Prolene. Good hemostasis was achieved and patient tolerated procedure well. Clean sterile dressing applied. The procedure was performed by myself. Procedure: Laceration repair. Verbal consent was obtained from the patient. The 1.5 cm, superficial, simple laceration on the top of left hand was anesthetized in the usual fashion using 1 mL of 1% lidocaine with epinephrine. The wound was irrigated, draped and explored to its base with a gloved finger. There were no deep structures involved. No tendon injury was identified. The wound was repaired with #1, 5- 0 Prolene. Hemostasis was achieved and patient tolerated procedure well. Clean sterile dressing applied. The procedure was performed by myself. Procedure: Laceration repair. Verbal consent was obtained from the patient. The 1.5 cm, superficial, simple laceration on the base of the left thumb was anesthetized in the usual fashion using 1% lidocaine with epinephrine. The wound was irrigated, draped and explored to its base with a gloved finger. There were no deep structures involved. No tendon injury was identified. The wound was repaired with #1, 5- 0 Prolene. Good hemostasis was achieved and patient tolerated procedure well. Clean sterile dressing applied. The procedure was performed by myself. Procedure: Splint placement. A left Velcro volar splint was applied by the Emergency Room limited radiology technician. After application of the splint I returned and re-examined the patient. The splint was adequately immobilizing the joint and distal to the splint the patient's circulation and sensation was intact. ED Course/Re-evaluation: Tetanus is current. Hemostasis was achieved using silver nitrate sticks x3, surgery foam with compression dressing times 15 min. Wrist and hand lacerations were repaired using 5-0 Prolene. Given Augmentin. Verbal and written wound care instructions provided. No signs of neurovascular compromise/tenting of skin/compartment syndrome/ extremities and joints examined above and below area of concern and are neurovascularly intact. This patient was seen under the supervision of my secondary supervising physician. I evaluated care for this patient independently. Discussed this patient with Dr. Juarez. Differential Diagnosis: Differential diagnosis includes but is not limited to laceration, foreign body, puncture site, cellulitis, nerve injury, tendon injury, vascular injury. - Data Points Medications Given: Discontinued Medications Amoxicillin/Clavulanate Potassium (Augmentin 875mg) 875 mg PO EDNOW ONE PRN Reason: Protocol Stop: 04/26/18 23:17 Last Admin: 04/26/18 23:38 Dose: 875 mg Departure - Departure Disposition: Home, Routine, Self-Care Clinical Impression: Cat bite of left wrist Qualifiers: Encounter type: initial encounter Qualified Code(s): S61.552A - Open bite of left wrist, initial encounter Cat bite of left hand Qualifiers: Encounter type: initial encounter Qualified Code(s): S61.452A - Open bite of left hand, initial encounter Condition: Good Instructions: Animal Bite (ED), Care For Your Stitches (ED), Laceration (ED) Additional Instructions: Wear the Velcro wrist splint until sutures are removed. Keep the dressing dry and in place for 48 hours. After 48 hours, you may remove the dressing; wash the site daily with mild soap and water; then pat dry apply topical antibiotic ointment daily until fully healed. Take Tylenol 650 mg every 4 hours and/or Ibuprofen 600 mg every 8 hours with food as needed for pain. Apply ice for 30 minutes at a time; 2-3 times per day for the next 1-2 days. Take Augmentin twice a day x 10 days. Do not skip a dose. Return to the ER immediately if you experience redness, red streaks, have fevers /chills, flu like symptoms, limited range of motion, or any other symptoms that concern you. Wound Care Follow-Up: Removal of sutures in [10-14] days. Suture removal is complimentary in uncomplicated cases. Infection or abnormal findings would require reevaluation by the MD. In that case, you may be billed. Referrals: Beni Garcia DO [Primary Care Provider] - As per Instructions Prescriptions: Amoxicillin/Clavulanate Pot [Augmentin 875 MG TAB (*)] 875 mg PO BID #14 tab
[2018-04-26] MEDS ORDERED: SILVER NITRATE APPLICATOR 1 APPL TP ONE (23:19)
[2018-04-27] MEDS ORDERED: IBUPROFEN 600 MG TAB PO ONE (00:13)
[2018-04-27 00:20] VITALS: BP 129/94
== END 2018-04-27 00:21 | disposition home or self-care (01) ==
PROC: 0HQEXZZ Repair Left Lower Arm Skin, External Approach (ICD-10-PCS; principal; 2018-04-26)
PROC: 0HQGXZZ Repair Left Hand Skin, External Approach (ICD-10-PCS; principal; 2018-04-26)
DX: S61.552A Open bite of left wrist, initial encounter (principal); S61.452A Open bite of left hand, initial encounter; F17.200 Nicotine dependence, unspecified, uncomplicated; W55.01XA Bitten by cat, initial encounter
CPT/HCPCS: L3984

== ENCOUNTER → 2018-04-26 | Outpatient (CLI) | payer MEDICAID | LOC: FIMAGING 07:22 | PROVIDERS: ATTEND Physician Assistant | DX: R10.13 Epigastric pain (principal); K76.0 Fatty (change of) liver, not elsewhere classified | CPT/HCPCS: L3984 ==

== ENCOUNTER 2018-05-12 11:12 | Inpatient (IN) | payer MEDICAID ==
[2018-05-12] MEDS ORDERED: ONDANSETRON DISINTEGRATING 4 MG TAB PO PRN ×2 (11:54→11:58)
[2018-05-12] MEDS ORDERED: HYDROCODONE/APAP 5/325 TAB PO PRN (11:54)
[2018-05-12] MEDS ORDERED: ONDANSETRON 4 MG/2 ML VIAL IVP PRN ×3 (11:54→18:27)
[2018-05-12] MEDS ORDERED: ACETAMINOPHEN 325 MG TAB PO PRN ×2 (11:54→11:58)
[2018-05-12 13:05] LABS: PLATELET COUNT 566 10^3/uL (150-400)
[2018-05-12] MEDS: HEPARIN 5,000 UNIT/0.5 ML INJ SC SCH ×2 (13:34→21:42)
--- NOTE | 2018-05-12 15:42 | PDGENHP ---
History and Physical - Chief Complaint L hand infection - History of Present Illness Hilaria Dye is a 52 yo F with a PMHx of recent hospitalization for L hand wound 2 /2 to cat bite, polymyalgia rheumatic on chronic steroids who presents from IF clinic today for worsening L hand wound. She was recently admitted to [facility] from 04/29- for same complaint. Three days prior to that admission, she was bit by her cat on the L hand. She had stitches placed on laceration of R wrist and was started on IV Unasyn. She had improvement with IV abx and was discharged on course of Augmentin. She followed up with ID and Orthopaedics as an outpatient with worsening of wound and was recommended to return to hospital today. She has had increased pain in L hand which radiates down the arm to elbow with associated warmth and swelling. She has been taking 10 mg Oxycodone q4 hours for the pain which helps. History Information - Allergies/Home Medication List Allergies/Adverse Reactions: tiagabine HCl [From Gabitril] Allergy (Unknown, Verified 05/02/18 17:59) Other-Enter Comments Home Medications: Metoprolol Tartrate [Lopressor 25 mg (*)] 25 mg PO DAILY #0 03/25/17 [Last Taken 05/12/18] Naratriptan HCl [Amerge] 2.5 mg PO DAILY PRN 03/25/17 [Last Taken 04/05/17 14:00 ] methylPREDNISolone [Medrol 4mg (*)] 2 - 4 mg PO DAILY #0 03/25/17 [Last Taken AM] Thyroid,Pork [ARMOUR THYROID] 75 mg PO DAILY 04/06/17 [Last Taken 05/11/18] Hydroxychloroquine Sulfate [Plaquenil 200 mg (*)] 200 mg PO BID 04/26/18 [Last Taken 05/11/18 pm] Pantoprazole Sodium [Protonix 40mg (*)] 40 mg PO DAILY 04/29/18 [Last Taken ] Thyroid [[place] Thyroid 60 MG (*)] 60 mg PO DAILY 04/29/18 [Last Taken 05/12/18 AM] oxyCODONE IR [Oxycodone Ir (*)] 5 - 10 mg PO Q4H PRN 05/12/18 [Last Taken Unknown] I have personally reviewed and updated: family history, medical history, social history, surgical history - Past Medical History Additional medical history: irritable bowel syndrome. Interstitial cystitis. Chronic migraine. Graves disease. Polymyalgia rheumatica on chronic steroids. Recent colliers fracture - Surgical History Additional surgical history: hysterectomy. Appendectomy. Right patella surgery. left breast lumpectomy. Endometriosis surgery. Thyroidectomy - Family History Additional family history: mother with rectal cancer, father with diabetes mellitus, sister with [place]'s disease - Social History Smoking Status: Light smoker Tobacco Use: Cigarettes (Occassional, does not purchase cigarettes) Alcohol Use: Occasionally Drug Use: None Additional social history: normally independent in her ADLs Review of Systems Review of Systems: ROS: 10pt was reviewed & negative except for what was stated in HPI & below Physical Exam Physical Exam: Temp Pulse Resp BP Pulse Ox 36.8 C 72 16 134/80 H 93 05/12/18 12:25 05/12/18 12:25 05/12/18 12:25 05/12/18 12:25 05/12/18 12:25 Constitutional: no apparent distress Eyes: PERRL Ears, Nose, Mouth, Throat: moist mucous membranes Cardiovascular: regular rate and rhythym Respiratory: no respiratory distress Gastrointestinal: normoactive bowel sounds, soft, non-tender abdomen Genitourinary: no bladder tenderness Skin: warm, other (L hand wrapped in guaze) Musculoskeletal: full muscle strength Neurologic: AAOx3 Psychiatric: interacting appropriately Lymph, Heme, Immunologic: No ecchymoses, No petechiae Lab Data & Imaging Review 05/12/18 12:45 05/12/18 12:45 WBC 11.71 10^3/uL (3.80-9.50) H 05/12/18 12:45 RBC 4.31 10^6/uL (4.18-5.33) 05/12/18 12:45 Hgb 14.3 g/dL (12.6-16.3) 05/12/18 12:45 Hct 42.2 % (38.0-47.0) 05/12/18 12:45 MCV 97.9 fL (81.5-99.8) 05/12/18 12:45 MCH 33.2 pg (27.9-34.1) 05/12/18 12:45 MCHC 33.9 g/dL (32.4-36.7) 05/12/18 12:45 RDW 14.8 % (11.5-15.2) 05/12/18 12:45 Plt Count 566 10^3/uL (150-400) H 05/12/18 12:45 MPV 9.5 fL (8.7-11.7) 05/12/18 12:45 Neut % (Auto) 86.0 % (39.3-74.2) H 05/12/18 12:45 Lymph % (Auto) 6.8 % (15.0-45.0) L 05/12/18 12:45 [place] % (Auto) 5.8 % (4.5-13.0) 05/12/18 12:45 Eos % (Auto) 0.6 % (0.6-7.6) 05/12/18 12:45 Baso % (Auto) 0.4 % (0.3-1.7) 05/12/18 12:45 Nucleat RBC Rel Count 0.0 % (0.0-0.2) 05/12/18 12:45 Absolute Neuts (auto) 10.06 10^3/uL (1.70-6.50) H 05/12/18 12:45 Absolute Lymphs (auto) 0.80 10^3/uL (1.00-3.00) L 05/12/18 12:45 Absolute Monos (auto) 0.68 10^3/uL (0.30-0.80) 05/12/18 12:45 Absolute Eos (auto) 0.07 10^3/uL (0.03-0.40) 05/12/18 12:45 Absolute Basos (auto) 0.05 10^3/uL (0.02-0.10) 05/12/18 12:45 Absolute Nucleated RBC 0.00 10^3/uL (0-0.01) 05/12/18 12:45 Immature Gran % 0.4 % (0.0-1.1) 05/12/18 12:45 Immature Gran # 0.05 10^3/uL (0.00-0.10) 05/12/18 12:45 Sodium 137 mEq/L (135-145) 05/12/18 12:45 Potassium 4.3 mEq/L (3.3-5.0) 05/12/18 12:45 Chloride 100 mEq/L (97-110) 05/12/18 12:45 Carbon Dioxide 26 mEq/l (22-31) 05/12/18 12:45 Anion Gap 11 mEq/L (8-16) 05/12/18 12:45 BUN 12 mg/dL (7-23) 05/12/18 12:45 Creatinine 0.6 mg/dL (0.6-1.0) 05/12/18 12:45 Estimated GFR > 60 05/12/18 12:45 Glucose 99 mg/dL (70-100) 05/12/18 12:45 Calcium 10.1 mg/dL (8.5-10.4) 05/12/18 12:45 Assessment & Plan Assessment: L Hand Infection - Recently admitted , got IV Unasyn at that time, discharged on Augmentin - Wound as been worsening with increased pain, erythema - She was following with ID and Ortho as an OP who recommended hospitalization today - Ortho to take to OR this afternoon for washout - ID consulted who recommend continuing Unasyn while IP - Blood cultures drawn, f/u results - HD stable on admission, WBC 11.7, continue to monitor CBC - Pain meds PRN Polymyalgia Rheumatica - Continue home steroids, no need for stress dose steroids at this time Hypothyroidism - Continue home thyroid replacement Hx of H Pylori - Continue home PPI Migraines - Continue home Triptan PRN FEN: PRN IVF Diet: NPO for OR this afternoon Ppx: SubQ Heparin Code: Full Dispo: Admit to Medicine, pending clinical course
[2018-05-12] MEDS: HYDROmorphONE/DILAUDID 1 MG/ML INJ IVP PRN ×6 (16:02→21:42)
[2018-05-12] MEDS ORDERED: BACITRACIN 50,000 UNITS/10 ML SYR IRR ONE (16:17)
[2018-05-12] MEDS ORDERED: POLYMYXIN B SULFATE 500,000 UNIT/10 ML SYR IRR ONE (16:17)
[2018-05-12] MEDS ORDERED: BUPIVACAINE/EPI 0.5% 30 ML SDV ONE (16:17)
[2018-05-12] MEDS ORDERED: Naratriptan Hcl [Amerge] 2.5 MG PO PRN (16:18)
[2018-05-12] MEDS ORDERED: LR 1,000 ML IV ONE (16:27)
[2018-05-12] MEDS ORDERED: MIDAZOLAM 2 MG/2 ML VIAL ONE (16:47)
[2018-05-12] MEDS ORDERED: MIDAZOLAM 2 MG/2 ML VIAL IVP ONE (16:49)
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
[2018-05-12] MEDS ORDERED: fentaNYL 100 MCG/2 ML INJ ONE ×4 (17:26→19:03)
[2018-05-12] MEDS ORDERED: fentaNYL 100 MCG/2 ML INJ IVP PRN ×2 (17:35→18:27)
--- NOTE | 2018-05-12 17:37 | PDHPUP ---
History & Physical Update H&P update statement: This history and physical update is based on an assessment of the patient which was completed after admission or registration (within 24 hours), but prior to the surgery/procedure. H&P update: H&P reviewed & patient examined, no change in patient's condition since H&P completed
[2018-05-12] MEDS ORDERED: PROPOFOL/EMULSION 500 MG/50 ML BOTTLE IV ONE (17:42)
[2018-05-12] MEDS: AMPICILLIN/SULBACTAM 1.5 GM in NS 50 ML IV SCH (18:15)
[2018-05-12] MEDS ORDERED: PROMETHAZINE HCL 25 MG/ML INJ IVP PRN (18:27)
[2018-05-12] MEDS ORDERED: NALOXONE HCL 0.4 MG/ML INJ IVP PRN (18:27)
[2018-05-12] MEDS ORDERED: HYDROmorphONE/DILAUDID 1 MG/ML INJ ONE (19:11)
[2018-05-12] MEDS: oxyCODONE IR 5 MG TAB PO PRN ×2 (19:24→23:58)
[2018-05-12] MEDS ORDERED: oxyCODONE IR 5 MG TAB ONE (19:24)
[2018-05-12] MEDS ORDERED: KETOROLAC 30 MG/1 ML SDV ONE (19:33)
[2018-05-12] MEDS ORDERED: KETOROLAC 30 MG/1 ML SDV IVP ONE (19:45)
--- NOTE | 2018-05-12 19:59 | GOP ---
DATE OF OPERATION: 05/12/2018 SURGEON: Yrn Olson MD ANESTHESIA: General. PREOPERATIVE DIAGNOSIS: Left wrist infection secondary to cat bite. POSTOPERATIVE DIAGNOSIS: Left wrist infection secondary to cat bite. PROCEDURE PERFORMED: Irrigation and debridement of left wrist including superficial and deep compart ments to midforearm to wrist. FINDINGS: ESTIMATED BLOOD LOSS: 5 cc. INDICATIONS: This patient is a 52-year-old female, well-known to me. I took the patient to the OR a bout 2 weeks ago due to an infection in the left hand and wrist due to a cat bite. I had been follow ing her along in clinic. She is also being followed by the ID service. She was seen by me several d ays ago and looked to be progressing well with the exception of continued pain in that wrist, hand, a nd forearm. She was seen by Dr. Duane Corbin with the ID Service today. He sent me pictures in the orning with concern that the wrist looked worse from several days ago. I had shared with him my own images. I reviewed these. There appeared to be some increasing drainage and redness around the inci nancy. She was complaining of increasing pain radiating up her forearm to her elbow. With these find ings, worsening signs of infection, despite 2 weeks, despite oral antibiotics, and a prior washout, I felt that a return to the operating room was indicated. She was admitted to the Hospitalist Service and I took the patient to the OR in timely fashion. I discussed with her risks and benefits of surg aman. Risks include pain, bleeding, infection, damage to surrounding structures, stiffness, weakness, wound healing complications, need for further surgeries. She understood these risks and wished to p roceed. DESCRIPTION OF PROCEDURE: Patient was seen in the preoperative holding area. She was given an oppor tunity to ask me more questions. All of her questions were answered. Consent was signed. Surgical site was marked. She was transferred to the operative suite. Care was taken to pad all bony promine nces on the gurney. Time-out was called including surgical and anesthesia teams confirming surgical site and procedure to be performed. IV antibiotics were withheld until cultures were taken. The lef t upper extremity was prepped and draped in the usual sterile fashion. Examining her prior to the thomas rgery, she did not have any sign of infection over the 2 dorsal hand incisions. Her volar incision, there appeared to be some redness and some serous drainage thus, I opened only the volar incision. W unique I opened this up I took cultures. When I opened it up I did not see any felecia pus. Thus I decid ed to exsanguinate below the infection site and inflated the tourniquet to 250 mmHg. I then explored . I opened up the sheath over the FCR. This was clean. It examined the tendon heading into the car pal tunnel. These were clean, I did not reopen the carpal tunnel incision. I examined over the then ar eminence where she was having pain. There was no pus here. I examined deep and superficial herrera rtments of the forearm. There was no fluid seen or signs of infection seen. She did have some fibri nous tissue over the skin edges, this was debrided with scissors. I then used the [place] to debride a ny granular appearing tissue and then irrigated copiously with sterile saline over 6 L. After the ir rigating the tourniquet was let down. All bleeding was controlled. Her incision was closed loosely with nylon. I placed the GERSON drain. After closing the incision I secured the drain with Steri-Strips . Sterile dressing was applied. I placed a volar resting splint for her. She was awakened from gen eral anesthesia in stable condition and taken to the PACU in stable condition. POSTOPERATIVE CONDITION: Stable. POSTOPERATIVE PLAN: The patient was followed inpatient by me and the ID Service. She was admitted [facility] to the Hospitalist Service. We will decide on IV antibiotics based on her culture results and cl inical course. I will plan on removing the drain in a few days. /[id number]/MODL
--- NOTE | 2018-05-12 19:59 | GCON ---
DATE OF CONSULTATION: 05/12/2018 REFERRING PHYSICIAN: Duane Corbin MD CHIEF COMPLAINT: Left wrist infection. HISTORY OF PRESENT ILLNESS: The patient is a 52-year-old female, well known to me. She has a past history of left wrist and hand infection due to a cat bite that was incised and drained by me about 2 weeks ago. She was followed in clinic by both myself and the ID service. Today, she was seen by Dr. Corbin in the office. She has complained of increasing pain in the wrist, radiating up her forearm. There appeared to be increasing redness around the incision. There was increasing drainage. These were signs that there was worsening infection. We just decided that it was most prudent to admit the patient and then take her in a timely fashion to the operating room. I was consulted for treatment of the worsening infection. ALLERGIES: Gabitril. HOME MEDICATIONS: Please see [facility]. PAST MEDICAL HISTORY: Irritable bowel syndrome, interstitial cystitis, chronic migraines, Graves disease, polymyalgia rheumatica. SURGICAL HISTORY: ORIF right distal radius, hysterectomy, appendectomy, right patella, left breast lumpectomy, endometrial surgery, thyroidectomy. FAMILY HISTORY: Noncontributory. SOCIAL HISTORY: She is a light smoker. REVIEW OF SYSTEMS: A 10-point review of systems negative except as noted above. PHYSICAL EXAM: GENERAL: No apparent distress. MUSCULOSKELETAL: The patient was examined in the preop area. LEFT WRIST: Over the left hand, the incisions are healing well without any redness, swelling, or any other signs of infection. These are healing up nicely. Over the volar wrist, there is some erythema around the edge of the incision. There is mild serous drainage. There is tenderness to palpation over this area. She is neurovascularly intact ulnar nerves. Motor, sensory intact in median, radial, and ulnar. She has some dysesthesia over the dorsal aspect of the radial hand. Her fingers are well perfused. LABS: Her white count is slightly elevated at 11.7. ASSESSMENT: Left wrist infection due to cat bite with signs of worsening infection. PLAN: To take to the operating room for I and D. We will then admit to the hospitalist service. I appreciate their assistance. She will be followed by both ID and myself. We will follow cultures. /[id number]/MODL MTDD
[2018-05-12] MEDS: HYDROXYCHLOROQUINE SULFATE 200 MG TAB PO SCH (21:43)
[2018-05-13] MEDS: HYDROmorphONE/DILAUDID 1 MG/ML INJ IVP PRN ×5 (00:06→21:45)
[2018-05-13] MEDS: AMPICILLIN/SULBACTAM 1.5 GM in NS 50 ML IV SCH ×2 (00:06→06:21)
[2018-05-13] MEDS: HYDROmorphone HCL 0.5 MG/0.5 ML SYR IVP PRN ×2 (02:14→04:58)
[2018-05-13] MEDS: oxyCODONE IR 5 MG TAB PO PRN ×5 (04:54→22:38)
[2018-05-13] MEDS: HEPARIN 5,000 UNIT/0.5 ML INJ SC SCH ×3 (06:21→21:45)
[2018-05-13] MEDS: methylPREDNISolone 4 MG TAB PO SCH (08:09)
[2018-05-13] MEDS: METOPROLOL TARTRATE 25 MG TAB PO SCH (08:09)
[2018-05-13] MEDS: PANTOPRAZOLE SODIUM 40 MG TAB PO SCH (08:10)
[2018-05-13] MEDS: HYDROXYCHLOROQUINE SULFATE 200 MG TAB PO SCH ×2 (08:10→19:56)
[2018-05-13] MEDS ORDERED: THYROID 60 MG TAB PO SCH (09:00)
--- NOTE | 2018-05-13 09:38 | PDMN ---
Medical Necessity Medical necessity: [facility] Musculoskeletal Surgery or Procedure and [facility] Systemic or Infectious Condition: 52 y/o w/ cat bite LUClarence recently treated in hospital w/ IV antibx, sent home on oral antibx, back for worsening wound, pt is hypotensive 80s/50s, WBC elevated, direct admit to IP status per ID, surgical consulted and pt taken in for urgent surgery s/p forearm/wrist I&D. IV antibx restarted, GERSON drain placed. IP status for ongoing monitoring and treatment of infection.
--- NOTE | 2018-05-13 10:09 | PCMIDPN ---
Assessment/Plan: #Deep infection of the left forearm/tenosynovitis s/p cat bite. Antibiotics directed at strep, pasteurella, anaerobe and MSSA. Prior cultures showing micrococcus and P acnes is not likely significant pathogen. When 1st cultures were taken patient was on antibiotics therefore lack organisms in cultures from 04/29/2018 in suggests correct coverage. Reviewed OR report no purulence was identified on this 2nd surgery. Reason for failure not clear, at this point do not suspect spectrum activity of antibiotics as the culprit. Underlying immune compromise could be playing a role. Not clear if patient could be having an adequate absorption of Augmentin --continue Unasyn, increase dose to 3 g --reassess tomorrow to assess discharge plan, may have to consider short course of IV as an outpatient --repeat tularemia testing as cat w exposure to "vermin" immediately prior to attack. (prior neg titer only 3 days after exposure). Will start empiric doxycycline coverage as reason for failure not entirely clear # elevated LFT: improved based on labs 05/09/18, repeat today Microbiology 05/12/18 18:17 Wrist - Eswab Gram Stain -no organisms 04/29/18 19:50 Hand - Eswab Anaerobic Culture - Final Micrococcus Luteus Cutibacterium Acnes (P.acnes) Subjective: 52-year-old woman who I originally met in the emergency room 04/29/2018 3 days after cat bite in which she had increased purulence from the wound. Patient to washout that same day and cultures from the OR are negative. Patient has been on empiric Augmentin and had progressive left arm pain and drainage and went back to the OR yesterday for additional washout. Intraoperatively appearance did not show purulence and only had minimal signs of infection. Repeat cultures were taken. Interestingly patient's cat was fighting over a "vermin "immediately prior to attack. She denies any systemic symptoms prior to readmission. She had had 1-2 loose stool without abdominal cramping while at home taking Augmentin. Denied any other side effects Objective: Vital Signs Temp Pulse Resp BP Pulse Ox 37.0 C 94 16 112/77 95 05/13/18 07:52 05/13/18 07:52 05/13/18 07:52 05/13/18 07:52 05/13/18 07:52 Microbiology 05/12/18 18:17 Gram Stain - Final Wrist - Eswab 05/12/18 18:16 Gram Stain - Final Wrist - Eswab 05/12/18 18:16 Mycobacterial Smear (LATRICE) - Final Wrist - Eswab Mycobacterial Culture - Final 05/12/18 18:17 Mycobacterial Smear (LATRICE) - Final Wrist - Eswab Mycobacterial Culture - Final Laboratory Results 05/12/18 12:45 05/12/18 12:45 05/12/18 05/13/18 05/14/18 05:59 05:59 05:59 Intake Total 1570 Output Total 1380 Balance 190 Laboratory Tests 04/30/18 04/30/18 05/02/18 04:45 05:07 18:50 Total Bilirubin 0.7 0.8 AST 578 H 240 H ALT 320 H 325 H F. tularensis Titer <1:20 05/09/18 15:47 Total Bilirubin 0.3 AST 40 ALT 82 H F. tularensis Titer - Physical Exam General Appearance: alert, no apparent distress, other (Cushanoid) Respiratory: lungs clear, No accessory muscle use Cardiac/Chest: regular rate, rhythm Extremities: swelling (Mild swelling left upper hand/fingers, surgical dressing in place, drain in place that is not keeping suction), other (dressing in place ; all fingers well perfused w normal cap refill) Abdomen: non-tender, soft Skin: warm/dry, No diaphoresis, No jaundice, No pallor, No rash Neuro/Psych: alert, normal mood/affect, oriented x 3 - Time Spent With Patient Time Spent with Patient: greater than 35 minutes Time Spent with Patient: Greater than 35 minutes spent on this patients care, greater than 50% of time spent counseling, educating, and coordinating care regarding the above mentioned plan. ICD10 Worksheet Patient Problems: Problems Problem Status Onset Abdominal pain, chronic, right upper quadrant Acute Cellulitis of left arm Acute Nausea and vomiting in adult Acute
--- NOTE | 2018-05-13 10:37 | HOSPPROG ---
Hospitalist Progress Note Assessment/Plan: L Hand Infection - Recently admitted , received IV Unasyn at that time, discharged on Augmentin - Wound as been worsening with increased pain, erythema - She was following with ID and Ortho as an OP who recommended hospitalization - Ortho took to OR on 05/12 for I and D, washout - ID consulted who recommend continuing Unasyn while IP - Blood cultures and wound cultures collected, f/u results - HD stable on admission, WBC 11.7, continue to monitor CBC - Pain meds PRN Polymyalgia Rheumatica - Continue home steroids, no need for stress dose steroids at this time Hypothyroidism - Continue home thyroid replacement Hx of H Pylori - Continue home PPI Migraines - Continue home Triptan PRN FEN: PRN IVF Diet: Regular Ppx: SubQ Heparin Code: Full Dispo: Pending clinical course Subjective: Patient reports moderate pain in L hand this morning. Objective: Vital Signs Temp Pulse Resp BP Pulse Ox 37.0 C 94 16 112/77 95 05/13/18 07:52 05/13/18 07:52 05/13/18 07:52 05/13/18 07:52 05/13/18 07:52 Microbiology 05/12/18 18:17 Gram Stain - Final Wrist - Eswab 05/12/18 18:16 Gram Stain - Final Wrist - Eswab 05/12/18 18:16 Mycobacterial Smear (LATRICE) - Final Wrist - Eswab Mycobacterial Culture - Final 05/12/18 18:17 Mycobacterial Smear (LATRICE) - Final Wrist - Eswab Mycobacterial Culture - Final Laboratory Results 05/12/18 12:45 05/12/18 12:45 05/12/18 05/13/18 05/14/18 05:59 05:59 05:59 Intake Total 1570 Output Total 1380 Balance 190 - Physical Exam Constitutional: no apparent distress Eyes: PERRL Ears, Nose, Mouth, Throat: moist mucous membranes Cardiovascular: regular rate and rhythym Respiratory: no respiratory distress, clear to auscultation Gastrointestinal: normoactive bowel sounds Genitourinary: No zhu in urethra Skin: warm, other (L hand wrapped in guaze) Musculoskeletal: full muscle strength Neurologic: AAOx3 Psychiatric: interacting appropriately Lymph, Heme, Immunologic: No ecchymoses, No petechiae ICD10 Worksheet Patient Problems: Problems Problem Status Onset Abdominal pain, chronic, right upper quadrant Acute Cellulitis of left arm Acute Nausea and vomiting in adult Acute
[2018-05-13] MEDS: AMPICILLIN/SULBACTAM 3 GM in NS 50 ML IV SCH ×2 (11:15→17:27)
--- NOTE | 2018-05-13 11:19 | ASMTCMCOM ---
CM Note CM Note Notes: Pt returned to ER for worsening of infected cat bite. Currently on IV abx while in hospital, unclear if will need more at dc or if can dc w/oral abx. Pt lives alone and is independent in ADLs, CM w/f . DC Plan: TBD Date Signed: 05/13/2018 11:18 AM Electronically Signed By:Peggy Sibley RN
[2018-05-13] MEDS: DOXYCYCLINE HYCLATE 100 MG CAP/TAB PO SCH ×2 (11:23→19:56)
--- NOTE | 2018-05-13 11:37 | SOAPPROG ---
SOAP Progress Note Assessment/Plan: Assessment: POD #1 s/p I&D of L wrist -minimal output from GERSON -GS showing GP cocci Plan: -appreciate care of hospitalist service -IV abx per ID -Drain removed and dressing changed 05/13/18 11:38 Subjective: Moderate pain in L wrist after surgery. Controlled with current regimen. Drain no longer holding suction per nursing staff Objective: Vital Signs Temp Pulse Resp BP Pulse Ox 37.0 C 94 16 112/77 95 05/13/18 07:52 05/13/18 07:52 05/13/18 07:52 05/13/18 07:52 05/13/18 07:52 Microbiology 05/12/18 18:17 Gram Stain - Final Wrist - Eswab 05/12/18 18:16 Gram Stain - Final Wrist - Eswab 05/12/18 18:16 Mycobacterial Smear (LATRICE) - Final Wrist - Eswab Mycobacterial Culture - Final 05/12/18 18:17 Mycobacterial Smear (LATRICE) - Final Wrist - Eswab Mycobacterial Culture - Final Laboratory Results 05/12/18 12:45 05/12/18 12:45 05/12/18 05/13/18 05/14/18 05:59 05:59 05:59 Intake Total 1570 Output Total 1380 Balance 190 Gen: NAD L wrist -dressing intact -all fingers well perfused -serosang drain output. Drain no longer holding suction -intact AIN/PIN/ulnar -SILT volar fingertips. Some parasthesia in dorsal thumb and dorsoradial hand -drain removed without issue. Dressing changed -incision clean with mil serosang output ICD10 Worksheet Patient Problems: Problems Problem Status Onset Abdominal pain, chronic, right upper quadrant Acute Cellulitis of left arm Acute Nausea and vomiting in adult Acute
[2018-05-13] MEDS: KETOROLAC 15 MG/1 ML SDV IVP SCH (19:53)
[2018-05-14] MEDS: AMPICILLIN/SULBACTAM 3 GM in NS 50 ML IV SCH ×2 (00:49→06:19)
[2018-05-14] MEDS: KETOROLAC 15 MG/1 ML SDV IVP SCH ×3 (00:49→11:24)
[2018-05-14] MEDS: HYDROmorphONE/DILAUDID 1 MG/ML INJ IVP PRN ×3 (00:50→08:52)
[2018-05-14 05:35] LABS: PLATELET COUNT 433 10^3/uL (150-400)
[2018-05-14] MEDS: oxyCODONE IR 5 MG TAB PO PRN ×2 (06:19→11:25)
[2018-05-14] MEDS: HEPARIN 5,000 UNIT/0.5 ML INJ SC SCH ×2 (06:20→13:50)
[2018-05-14] MEDS: PANTOPRAZOLE SODIUM 40 MG TAB PO SCH (08:40)
[2018-05-14] MEDS: METOPROLOL TARTRATE 25 MG TAB PO SCH (08:40)
[2018-05-14] MEDS: methylPREDNISolone 4 MG TAB PO SCH (08:40)
[2018-05-14] MEDS: HYDROXYCHLOROQUINE SULFATE 200 MG TAB PO SCH (08:40)
[2018-05-14] MEDS: DOXYCYCLINE HYCLATE 100 MG CAP/TAB PO SCH (08:40)
[2018-05-14] MEDS ORDERED: THYROID 60 MG TAB PO SCH (09:00)
[2018-05-14] MEDS ORDERED: ERTAPENEM 1 GM in NS 100 ML IV SCH (11:00)
--- NOTE | 2018-05-14 11:01 | PCMIDPN ---
Assessment/Plan: Assessment/Plan: * Left hand/wrist/forearm infection status post cat bite with incision and drainage x2: Cultures remain negative although Gram stain showed 1+ GPC. Suspect this is primarily driven by bite rather than other etiology; however, agree with Dr. Angela that tularemia in differential diagnosis given that small animal present in cats mouth prior to bite. Therefore, plan continued doxycycline while tularemia antibody is pending. Still has residual area of lymphangitis along forearm. Would favor that patient remain in hospital for ongoing observation given residual lymphangitis and complex clinical course; she favors being discharged - will arrange for her to continue IV antibiotics with transition to ertapenem for daily administration through 05/19/2018 on [facility]. If discharged, will have nursing staff page our rounding physician, Dr. Corbin, tomorrow for repeat clinical assessment while on the infusion center. Time spent, greater than 35 min, which greater than half was spent in education/ counseling/coordination of care related to left upper extremity infection and plan of care including IV ertapenem on [facility] infusion center. 05/14/18 10:57 Subjective: Patient complains of residual pain in left forearm. Able to move digits without difficulty. Describes having erythema/flushing over chest and face yesterday afternoon which has not recurred. Objective: Vital Signs Temp Pulse Resp BP Pulse Ox 36.8 C 69 12 126/69 H 98 05/14/18 08:00 05/14/18 08:40 05/14/18 08:00 05/14/18 08:40 05/14/18 08:00 Microbiology 05/12/18 18:16 Gram Stain - Final Wrist - Eswab 05/12/18 18:17 Gram Stain - Final Wrist - Eswab Laboratory Results 05/14/18 05:05 05/14/18 05:05 05/13/18 05/14/18 05/15/18 05:59 05:59 05:59 Intake Total 1570 855 55 Output Total 1380 1000 550 Balance 190 -145 -495 Unasyn # 2 Doxycycline # 1 Tularemia antibody pending Left upper extremity cultures no growth Blood cultures x2 no growth - Physical Exam General Appearance: alert, no apparent distress EENT: No scleral icterus, No thrush, No conjunctival petechiae Respiratory: lungs clear, No respiratory distress Cardiac/Chest: regular rate, rhythm, No systolic murmur Extremities: inflammation (Left upper extremity with intact incision line except for small open area at base of thumb without purulent drainage; approximately 3-4 cm area of lymphangitis mid forearm which is tender to palpation, no nodularity, able to in a make a fist without difficulty and no digit edema) Abdomen: non-tender, No distended Skin: other (Mild erythema over upper chest), No embolic lesions ICD10 Worksheet Patient Problems: Problems Problem Status Onset Abdominal pain, chronic, right upper quadrant Acute Cellulitis of left arm Acute Nausea and vomiting in adult Acute
[2018-05-14] MEDS ORDERED: OXYCODONE/APAP 5/325 TAB PO PRN (11:33)
[2018-05-14 11:59] VITALS: BP 129/76
--- NOTE | 2018-05-14 14:19 | SOAPPROG ---
SOAP Progress Note Assessment/Plan: Assessment: POD #2 s/p I&D of L wrist -WBC trending down -GS showing GP cocci -erythema and soreness in mid-forearm may be 2/2 exploration of deep compartments in the forearm during surgery Plan: -appreciate care of hospitalist service -IV abx per ID -Spoke with Dr. Armijo, I am comfortable with her discharge if she will have close f/u at the infusion/ID clinic. Subjective: Pain stable. Concerned about some redness in mid-forearm. Abx have be changed to invanz and doxy Objective: Vital Signs Temp Pulse Resp BP Pulse Ox 37.1 C 61 12 129/76 H 94 05/14/18 11:57 05/14/18 11:57 05/14/18 11:57 05/14/18 11:57 05/14/18 11:57 Microbiology 05/12/18 18:17 Gram Stain - Final Wrist - Eswab 05/12/18 18:16 Gram Stain - Final Wrist - Eswab Laboratory Results 05/14/18 05:05 05/14/18 05:05 05/13/18 05/14/18 05/15/18 05:59 05:59 05:59 Intake Total 1570 855 55 Output Total 1380 1000 550 Balance 190 -145 -495 L wrist/forearm -wrist incision stable with mild serous drainage. No purulence -FROM of all digits -there is mild diffuse erythema in mid-forearm away from the incision. The area is ttp ICD10 Worksheet Patient Problems: Problems Problem Status Onset Abdominal pain, chronic, right upper quadrant Acute Cellulitis of left arm Acute Nausea and vomiting in adult Acute
[2018-05-14] MEDS ORDERED: oxyCODONE IR 5 MG TAB PO PRN (14:52)
--- NOTE | 2018-05-14 15:11 | PDDCSUM ---
Discharge Summary Discharge Summary: Date of Admission: 05/12/2018 Date of Discharge: 05/14/2018 Consults: ID, Orthopaedics Procedures: L Wrist I&D, Washout by Ortho Followup: ID in infusion clinic, Orthopaedics Hospital Course Problem List: Dav Hand Infection - Recently admitted , received IV Unasyn at that time, discharged on Augmentin - Wound as been worsening with increased pain, erythema - She was following with ID and Ortho as an OP who recommended hospitalization - Ortho took to OR on 05/12 for I and D, washout - ID consulted who recommend continuing Unasyn while IP, switching to Ertapenum through 05/19/2018 as OP which she will receive daily on [facility] infusion clinic, arranged by ID, Dr. Armijo - Blood cultures and wound cultures collected, f/u results - Concern for tuleremia, lab pending, continue on Doxycycline until results - Discharging on Oxycodone 10 mg q4 hours PRN Polymyalgia Rheumatica - Continue home steroids, no need for stress dose steroids at this time Hypothyroidism - Continue home thyroid replacement Hx of H Pylori - Continue home PPI Migraines - Continue home Triptan PRN Time spent on discharge was >35 minutes with >50% of time spent on patient education and counseling.
--- NOTE | 2018-05-19 11:41 | PQFORM ---
PHYSICIAN QUERY FORM Needs Your Response This query form is being sent to you to assure this patient record is coded properly. Please respond to the question below: COPY LATHE TENDER QUESTION: Dear Dr. Olson, For coding purposes (there is a different code choice for excisional versus non excisional debridement)- please clarify if the debridement done on 12 May 2018 was: ___~ Excisional ___~ Non Excisional ___~ Other : the code I used for this procedure was 34814 Thank You INSTRUCTIONS FOR RESPONSE: Answer question by clicking on the "Edit Document" button. Move cursor to area below the stars. When complete, hit "Save." Click on the "Sign" button, then click "Sign" again. Type in your PIN and hit "Enter." MTDD
== END 2018-05-14 15:09 | disposition home or self-care (01) | DRG 364 ==
LOC: F3N 11:12 → OBSVTOIN 12:03 → F3E 12:05
PROVIDERS: ADMIT Internal Medicine; ATTEND Internal Medicine
DX: L03.114 Cellulitis of left upper limb (principal); E03.9 Hypothyroidism, unspecified; W55.01XS Bitten by cat, sequela; M35.3 Polymyalgia rheumatica; G43.909 Migraine, unspecified, not intractable, without status migrainosus
CPT/HCPCS: 86668-90; J0295; J1170; J1335; J1644; J1885; J2250; J2270; J2704; J3010

== ENCOUNTER → 2019-02-22 | Outpatient (CLI) | payer MEDICAID | LOC: FIMAGING 10:09 ==

== ENCOUNTER → 2019-03-01 | Outpatient (CLI) | payer MEDICAID | LOC: FIMAGING 14:22 ==